=== PATIENT | female | born 1990 | race Caucasian/White ===

== ENCOUNTER 2016-12-14 08:29 | Emergency (ER) | payer OTHER ==
--- OUTSIDE RECORDS SUMMARY | 2016-12-14 09:10 | XMS REPORT | Continuity of Care Document ---
:1990 Author Organization [facility] [place] [address] Care Team Providers Name Role Phone Trupti Silva Primary Care Provider [phone] Source Comments This disclosure is being made pursuant to the [employer] program and maynot contain all information available regarding this patient.[facility] Active Allergies and Adverse Reactions Not on File Current Medications Be aware that medications may not be up to date as of this document. Alwaysverify current medications with the patient. Not on file Active Problems Not on file Social History Tobacco Use Types Packs/Day Years Used Date Never Smoker Last Filed Vital Signs Vital Sign Reading Time Taken Blood Pressure 104/72 02/18/2014 2:56 PM CDT Pulse 74 02/18/2014 2:49 PM CDT Temperature 36.1 C (97 F) 02/18/2014 2:49 PM CDT Respiratory Rate - - Height 1.638 m (5' 4.5") 01/17/2014 9:43 AM CDT Weight 56.518 kg (124 lb 9.6 oz) 02/18/2014 2:49 PM CDT Body Mass Index 21.06 02/18/2014 2:49 PM CDT Oxygen Saturation - - Plan of Care Health Maintenance Due Date Last Done Comments Tetanus/Pertussis (1 - Tdap) 2008 Retired-INFLUENZA VACCINE 05/05/2016 Pap Smear 10/16/2016 10/16/2013 Results from Last 3 Months Not on file
--- OUTSIDE RECORDS SUMMARY | 2016-12-14 09:10 | XMS REPORT | Summary of Care ---
:[address] [facility] Address [address] [place] [address] Encounter Date(s): 10/10/16 - 10/10/16 [facility], [address] [place] [address] [place] Discharge Disposition: 01 Discharged to Home or Self Care Attending Physician: Rush Bryant MD Vital Signs No data available for this section Problem List No data available for this section Allergies, Adverse Reactions, Alerts No data available for this section Medications No data available for this section Results No data available for this section Immunizations No data available for this section Procedures No data available for this section Social History No data available for this section Assessment and Plan No data available for this section
--- NOTE | 2016-12-14 09:24 | ERNOTE ---
Upper Extremity HPI - General Extremities Pain Location: 3rd finger: left Time Seen by Provider: 12/14/16 08:44 Source: patient Exam Limitations: no limitations - Immun/Allergies/Home Medications Immunizations: IMMUNIZATION HX Immunizations Up to Date Yes History of Influenza Vaccine No Hx Pneumococcal Vaccination No Allergies/Adverse Reactions: Allergies Allergy/AdvReac Type Severity Reaction Status Date / Time No Known Allergies Allergy Verified 12/14/16 08:38 Home Medications: HOME MEDICATIONS NK [No Home Medication] 12/14/16 [Last Taken Unknown] - History of Present Illness Narrative: While at work, the patient got her left middle finger caught in a machine, conveyor belt, causing an abrasion. Patient states that she is able to use her hand although somewhat decreased use because of the pain and a little bit of swelling is present. She rates the pain at approximately 5 a scale of 1-10. Occurred: just prior to arrival Location of Incident: work Severity: moderate Method of Injury: Reports: other - abrasion Loss of Consciousness: Reports: no loss of consciousness Other Injuries: Reports: none Review of Systems - Review of Systems Constitutional: Present: See HPI EYE: Present: no symptoms reported ENT: Present: no symptoms reported Respiratory: Present: no symptoms reported Cardiology: Present: no symptoms reported Gastrointestinal/Abdominal: Present: no symptoms reported Genitourinary: Present: no symptoms reported Musculoskeletal: Present: See HPI Skin: Present: See HPI Neurological: Present: no symptoms reported Endocrine: Present: no symptoms reported Hematologic/Lymphatic: Present: no symptoms reported Psych: Present: no symptoms reported - Patient's Past Medical History Patient History - Medical: No pertinent hx Patient History - Cardiac/Respiratory: No pertinent hx Patient History - Cancer: No Hx of Cancer Patient History - Surgical Procedures: Appendectomy, Tubal Ligation Patient History - Other: None - Social History Living Situations: home Psych History: No pertinent hx Alcohol Use: none Drug Use: none - Immunizations Immunizations Up to Date: Yes Hx Pneumococcal Vaccination: No History of Influenza Vaccine: No Physical Exam - Physical Exam General Appearance: Present: wd/wn, alert, moderate distress Eye Exam: Normal inspection: bilateral, PERRL: bilateral Ears, Nose, Throat: Present: normal ENT inspection, H, normal pharynx Neck: Present: normal inspection, nontender Respiratory: Present: no respiratory distress, normal breath sounds, no accessory muscle use, chest nontender, lungs clear Cardiovascular/Chest: Present: regular rate, rhythm, no murmur, normal peripheral pulses Gastrointestinal/Abdominal: Present: normal bowel sounds, nontender, nondistended, soft, no organomegaly Rectal Exam: Present: deferred Back Exam: Present: normal inspection, normal range of motion Extremity Exam: Present: decreased range of motion - patient presents with abrasions on the medial and the lateral surface of the third digit on the left hand at the level of approximately the middle phalanx. Neurovascular is intact in the finger, and the range of motion is somewhat diminished secondary to pain and mild swelling. Neurological Exam: Present: alert, oriented, normal mood/affect Skin Exam: Present: normal color, warm/dry Lymphatic Exam: Present: no adenopathy ED Progress - Vital Signs Patient's Vital Signs:: I have reviewed the patient's vital signs. Vital Signs: Vital Signs 12/14/16 08:33 Temperature 35.8 C L Pulse Rate 72 Respiratory 12 Rate Blood Pressure 123/80 O2 Sat by Pulse 100 Oximetry - X-Ray X-Ray #1 X-Ray: hand Interpretation: Reviewed by me - Progress/Reassessment Chief Complaint: Hand Injury/Pain Plan - Plan Plan: Patient's wounds were dressed, she states that her tetanus is up-to-date. Will be return to work at full activity. Departure Clinical Impression: Finger abrasion Qualifiers: Encounter type: initial encounter Qualified Code(s): S60.419A - Abrasion of unspecified finger, initial encounter - Departure Disposition: Home self-care Condition: Good Instructions: Abrasion, [id number]
[2016-12-14 09:32] VITALS: BP 106/64
== END 2016-12-14 09:33 | disposition home or self-care (01) ==
LOC: ER 08:29
DX: S60.413A Abrasion of left middle finger, initial encounter (principal); W31.9XXA Contact with unspecified machinery, initial encounter; Y92.63 Factory as the place of occurrence of the external cause; Y99.0 Civilian activity done for income or pay